=== PATIENT | female | born 1955 | race Caucasian/White ===

== ENCOUNTER 2020-07-09 07:34 | Outpatient (CLI) | payer OTHER, SELFPAY ==
--- NOTE | ~2020-07-09 | CT_ITS ---
EXAMINATION: CT lung screening EXAM DATE: 07/09/2020 08:56 INDICATION: Personal history of nicotine dependence. TECHNIQUE: Spiral low dose CT of the chest without contrast. Axial, coronal and sagittal images were reviewed. The dose-length product (DLP) for this examination was 108.13 mGy-cm. The exposure was t ailored according to patient size (auto mA exposure control), and iterative reconstruction (ASIR) was used as additional dose reduction technique. There is no prior study for comparison. FINDINGS: There is 3 mm noncalcified nodule right lower lobe on image 82. There is a 1.1 cm right po sterior lateral tracheal diverticulum at the thoracic inlet. Tracheobronchial tree is patent. There is no mediastinal, hilar or axillary lymphadenopathy. There are no pleural or pericardial effusion s. There is no pneumothorax. Heart normal in size. There is mild coronary arterial calcificatio n, arterial sclerosis. There is small sliding gastroesophageal hiatal hernia. Probable punctate left nephrolithiasis. There is moderate thoracic spondylosis without osteoblastic or osteolytic lesions identified. There is old left rib fracture posteriorly with nonunion. IMPRESSION: Lung-RADS category 2, benign appearance or behavior (<1% chance of malignancy); recommend continued LDCT screening in 1 year. Reviewed, dictated and finalized at location B. SITE MANAGER
--- NOTE | ~2020-07-09 | DEXA_ITS ---
Bone Density Report Name: Cris Loyola Age: 65 Sex: Female Ethnicity: White Date of : 1955 Indication: postmenopausal; height loss; hysterectomy; Referring Provider: Nimisha, Kelvin Study: Bone densitometry was performed. Exam Date: July 09, 2020 Accession number: [id number] Bone Density: Region BMD T-score Z-score Classification AP Spine (L1-L4) 1.086 0.4 2.2 Normal Femoral Neck (Left) 0.754 -0.9 0.7 Normal Total Hip (Left) 1.034 0.8 2.1 Normal Total Hip Bilateral Avg 1.014 0.6 1.9 Normal Femoral Neck (Right) 0.775 -0.7 0.9 Normal Total Hip (Right) 0.993 0.4 1.7 Normal World Health Organization criteria for BMD impression classify patients as: Normal (T-score at or above -1.0), Osteopenia (T-score between -1.0 and -2.5), or Osteoporosis (T-score at or below -2.5). 10-year Fracture Risk: FRAX not reported because: All T-scores for Spine Total, Hip Total, Femoral Neck at or above -1.0 Clinical Information Provided by Patient: Smokes Has the following medical conditions: Hysterectomy Patient maximum height was 65.5 Menopause Age: 44 No regular weight bearing exercise Drinks caffeinated beverages Onset of menses at age 13 Number of children 2 Impression: The patient has normal bone mass. The patient has risk factors, including: smoking. Discussion: BONE DENSITY IS ABOVE THE MINIMUM DESIRABLE LEVEL AT ALL SKELETAL SITES TESTED. This patient?s bone mineral density is above the minimum desirable level (T-score -1.0 or better) at all sites measured. The patient should follow a healthful lifestyle (good nutrition with adequate calcium and vitamin D, and appropriate weight-bearing exercise). Follow-Up: Consider repeating this study in 5 years or sooner if there is some new clinical indication. Reported by: [facility] on 07/09/2020 8:13:00 AM. Reviewed, dictated and finalized at location AYung ANN
--- NOTE | ~2020-07-09 | MM_ITS ---
EXAMINATION: MM screening [place]ton BI w keli HISTORY: Screening mammogram TECHNIQUE: Craniocaudal and mediolateral oblique 3-D tomosynthesis images were obtained and synthetic 2-D images were generated. CAD analysis was submitted and interpreted. COMPARISON: No prior mammogram is available for comparison at this institution. BREAST PARENCHYMAL COMPOSITION: There are scattered areas of fibroglandular density. FINDINGS: Scattered benign-appearing calcifications are present. There is no evidence of suspicious m ass, calcification, or architectural distortion to suggest malignancy in either breast. There has bee n no suspicious interval change. IMPRESSION: 1. No mammographic evidence of malignancy. 2. Recommend routine screening mammography in one year. BI-RADS Category 2: Benign finding(s). Reviewed, dictated and finalized at location A. SCREEN FITTER
== END 2020-07-09 07:35 | disposition home or self-care (01) ==
PROVIDERS: PCP Student in an Organized Health Care Education/Training Program; Visit Provider Student in an Organized Health Care Education/Training Program
DX: Z12.2 Encounter for screening for malignant neoplasm of respiratory organs (principal); Z12.31 Encounter for screening mammogram for malignant neoplasm of breast; F17.210 Nicotine dependence, cigarettes, uncomplicated; Z78.0 Asymptomatic menopausal state
CPT/HCPCS: 71271; 77063; 77067; 77080

== ENCOUNTER 2020-08-07 16:14 | Observation (INO) | payer OTHER, SELFPAY ==
[2020-08-07] VITALS (8 sets, daily range): BP systolic 100–118; BP diastolic 62–84; PULSE 88–102; RESP 16–22; TEMP 36.4–36.7; O2SAT 89–97; BMI 32.6
--- NOTE | 2020-08-07 16:52 | ED.WOUNDLAC ---
HPI - Wound/Laceration General Chief Complaint: Wound/Laceration Stated Complaint: fall - ETOH Time Seen by Provider: 08/07/20 16:24 Source: patient Mode of arrival: ambulatory Limitations: no limitations History of Present Illness HPI narrative: Patient is a 65-year-old female complaining of left arm laceration after she slipped and fell, hit a cabinet with her left arm, happened prior to arrival. Patient denies any head, neck, back, chest, abdomen, pelvic or any other extremity pain/injury. Onset (ago): hour(s) Related Data Home Medications Medication Instructions Recorded Confirmed atorvastatin 40 mg PO DAILY 08/07/20 08/07/20 Allergies Allergy/AdvReac Type Severity Reaction Status Date / Time No Known Allergies Allergy Verified 08/07/20 17:05 Review of Systems Review of Systems: All systems reviewed & are unremarkable except as noted in HPI and below Constitutional: Constitutional: Denies body ache(s), Denies chills, Denies excessive sweating, Denies fatigue, Denies fever(s), Denies headache(s), Denies lethargy, Denies malaise, Denies weakness and Denies weight loss Eyes: Eyes: Denies blurry vision, Denies change in vision and Denies loss of vision ENT: Denies dizziness, Denies ear discharge, Denies headache(s), Denies lip swelling, Denies epistaxis, Denies nasal congestion, Denies neck pain, Denies throat swelling and Denies tongue swelling Cardiovascular: Cardiovascular: Denies chest pain, Denies chest pain at rest, Denies chest pain with activity, Denies diaphoresis, Denies rapid heart rate, Denies edema, Denies irregular heart rhythm, Denies lightheadedness, Denies palpitations, Denies dyspnea and Denies dyspnea on exertion Respiratory: Respiratory: Denies chest congestion, Denies cough, Denies hemoptysis, Denies dyspnea and Denies dyspnea on exertion Gastrointestinal: Gastrointestinal: Denies abdominal pain, Denies melena, Denies hematochezia, Denies diarrhea, Denies nausea, Denies vomiting and Denies hematemesis Musculoskeletal: Musculoskeletal: Denies abnormal gait, Denies joint swelling, Denies limited range of motion, Denies neck pain and Denies numbness Neurologic: Denies Abnormal speech present, Denies abnormal gait, Denies confusion, Denies dizziness, Denies headache(s), Denies focal weakness, Denies loss of vision, Denies numbness, Denies Other visual disturbances, Denies Sensory deficit (Neuro) and Denies weakness Psychiatric: Psychiatric: Denies confusion, Denies depression, Denies auditory hallucinations, Denies homicidal ideation and Denies suicidal ideation Endocrine: Endocrine: Denies cold intolerance, Denies excessive sweating, Denies fatigue, Denies heat intolerance and Denies palpitations Hematologic/Lymphatic: Hematologic/Lymphatic: Denies easy bleeding and Denies easy bruising Allergic/Immunologic: Allergic/Immunologic: Denies lip swelling, Denies throat swelling and Denies tongue swelling PMFSH Past Medical History Medical History (Updated 08/07/20 @ 19:21 by Stuart Goff MD) Hyperlipidemia Social History Social History Smoking packs per day: 0.75 Smoking cigarettes per day: 15.0 Years smoked: 40 Smoking pack-years: 30.00 Smoking status: Current every day smoker Alcohol use details: 2-3 beers/day on average Exam Const: General: cooperative, healthy appearing, comfortable, no acute distress, well developed, alert and awake; No confusion Orientation/consciousness: oriented to person, oriented to place, oriented to time, patient oriented x3 and No confusion Limitations: no limitations HENMT: Head: normal to inspection, normocephalic and atraumatic Ears: hearing grossly normal bilaterally, TM normal on the right and TM normal on the left General nose exam: Normal external nose present, Normal nares present and No nasal discharge present Face and sinus: normal facial exam Mouth: Yes Normal oral and palatal
[2020-08-07] MEDS: LACTATED RINGERS 1,000 ML 250 ML IV CONT (17:03)
[2020-08-07 17:04] LABS: Basophils Percent Auto 0.3 % (0.2-1.2); Eosinophils Absolute Auto 0.2 K/mm3 (0-0.3); Eosinophils Percent Auto 2.7 % (0-4.4); Hemoglobin 13.6 g/dL (12.0-15.0); Immature Granulocyte Absolute 0.02 K/mm3 (0.00-0.031); Immature Granulocyte Percent A 0.3 % (0-0.5); Lymphocytes Absolute Auto 1.81 K/mm3 (0.9-3.2); Lymphocytes Percent Auto 25.9 % (18.3-44.2); Mean Corpuscular Hemoglobin 30.6 pg (26-34); Mean Corpuscular Volume 89.9 fl (80-100); Mean Platelet Volume 10.2 fl (7.4-10.4); Monocytes Absolute Auto 0.6 K/mm3 (0.1-0.6); Monocytes Percent Auto 8.4 % (2.6-8.5); Neutrophils Absolute Auto 4.4 K/mm3 (1.3-6.7); Neutrophils Percent Auto 62.4 % (45.5-73.1); Platelet Count Result 152 k/mm3 (150-375); Red Blood Count 4.45 M/mm3 (4.2-5.4); Red Cell Distribution Width 12.6 % (11.5-14.5)
[2020-08-07 17:09] LABS: Anion Gap 9 mmol/L (8-16); Blood Urea Nitrogen 10 mg/dL (7-17); Calcium 8.6 mg/dL (8.4-10.2); Carbon Dioxide 23 mmol/L (22-30); Chloride 99 mmol/L (98-107); Estimated CRCL calculation 74 ml/min; Estimated Glomerular Filt Rate > 60; Glucose 97 mg/dL (65-105); Potassium 3.8 mmol/L (3.4-5.0); Sodium 131 mmol/L (137-145)
[2020-08-07] MEDS: HYDROmorphone HCL INJ (*CRX) 1 MG/ML SYR 0.5 MG IV PUSH (17:16)
[2020-08-07] MEDS: ONDANSETRON INJ 4 MG/2 ML VIAL IV PUSH (17:17)
--- NOTE | 2020-08-07 17:55 | WPDANESEPPF ---
Anes - Initial Pre Proc Eval Procedure: Operation Date: 08/07/20 18:00 Proposed Procedures p I&D Debride Upper Extremity - Beckie Sheikh MD Date/Time: 08/07/20 17:55 Pre Op Diagnosis: fall - ETOH Patient Data Age: 65 Gender: F Height: 1.65 m Weight: 86 kg Last Vital Signs Temp 36.7 C 08/07/20 16:23 Pulse 102 H 08/07/20 16:23 Resp 16 08/07/20 16:23 BP 118/76 08/07/20 16:23 Pulse Ox 96 08/07/20 16:23 Allergies Allergy/AdvReac Type Severity Reaction Status Date / Time No Known Allergies Allergy Verified 08/07/20 17:05 Home Medications Medication Instructions Recorded Confirmed Type atorvastatin 40 mg PO DAILY 08/07/20 08/07/20 History Laboratory Tests 08/07/20 08/07/20 16:49 16:52 WBC 7.0 K/mm3 K/mm3 (4.5-10.0) RBC 4.45 M/mm3 M/mm3 (4.2-5.4) Hgb 13.6 g/dL g/dL (12.0-15.0) Hct 40.0 % % (37.0-47.0) MCV 89.9 fl fl (80-100) MCH 30.6 pg pg (26-34) MCHC 34.0 g/dl g/dl (32-36) RDW 12.6 % % (11.5-14.5) Plt Count 152 k/mm3 k/mm3 (150-375) MPV 10.2 fl fl (7.4-10.4) Immature Gran % (Auto) 0.3 % % (0-0.5) Neut % (Auto) 62.4 % % (45.5-73.1) Lymph % (Auto) 25.9 % % (18.3-44.2) [place] % (Auto) 8.4 % % (2.6-8.5) Eos % (Auto) 2.7 % % (0-4.4) Baso % (Auto) 0.3 % % (0.2-1.2) Lymph # (Auto) 1.81 K/mm3 K/mm3 (0.9-3.2) [place] # (Auto) 0.6 K/mm3 K/mm3 (0.1-0.6) Eos # (Auto) 0.2 K/mm3 K/mm3 (0-0.3) Baso # (Auto) 0.0 K/mm3 K/mm3 (0.0-0.1) Abs Immat Gran (auto) 0.02 K/mm3 K/mm3 (0.00-0.031) Absolute Neuts (auto) 4.4 K/mm3 K/mm3 (1.3-6.7) Absolute Nucleated RBC 0.0 K/mm3 K/mm3 (0.0-0.012) Nucleated RBC % 0.0 % % (0.0-0.2) Sodium 131 mmol/L L mmol/L (137-145) Potassium 3.8 mmol/L mmol/L (3.4-5.0) Chloride 99 mmol/L mmol/L (98-107) Carbon Dioxide 23 mmol/L mmol/L (22-30) Anion Gap 9 mmol/L mmol/L (8-16) BUN 10 mg/dL mg/dL (7-17) Creatinine 0.70 mg/dL mg/dL (0.7-1.0) Estim Creat Clear Calc 74 ml/min ml/min Estimated GFR > 60 (59 - ) Glucose 97 mg/dL mg/dL (65-105) Calcium 8.6 mg/dL mg/dL (8.4-10.2) Patient hx anesthesia problems: none Family hx anesthesia problems: none [facility] Past Medical History Medical History (Updated 08/07/20 @ 17:55 by Maurice Bansal DO) Hyperlipidemia Social History Social History (Updated 08/07/20 @ 17:56 by Maurice Bansal DO) Smoking packs per day: 0.75 Smoking cigarettes per day: 15.0 Years smoked: 40 Smoking pack-years: 30.00 Smoking status: Current every day smoker Alcohol use details: 2-3 beers/day on average Anes - Eval Final PreProcedure Day of Procedure 08/07/20 17:55 Patient weight: obese Heart: regular rate and rhythm Lungs: clear to auscultation and normal air movement Airway: Mallampati scale class II Neurological: alert and oriented Last oral intake: 4 hours (Pt believes she didn't eat today but she had 3 beers) ASA classification: III Emergent: yes Anesthetic plan: proceed Anesthesia type and monitoring: general ETT and standard monitoring Informed Consent: The patient's anesthetic plan and its attendant risks and benefits were discussed with the patient/family/POA. Questions were solicited and answers provided to the satisfaction of the patient/family/POA.
--- NOTE | 2020-08-07 18:01 | PM.IMHP ---
H&P: HPI History of Present Illness Date/Time: 08/07/20 18:01 Chief Complaint: LUE laceration Narrative: Cris Loyola is a 65 year old female presenting to the ED s/p fall c/o large laceration to LUE. Pt reports she fell and lacerated her LUE on the edge of her cabinet. Pt admits to ETOH prior to fall. Pt denies any other injuries or LOC. Pt reports tetnus shot last yr. Review of Systems Constitutional: Constitutional: Denies chills, Denies fatigue, Denies fever(s), Denies headache(s), Denies lethargy, Denies malaise, Denies poor appetite, Denies weakness, Denies weight gain and Denies weight loss Eyes: Eyes: Reports no additional eye complaints ENT: Reports system reviewed and no additional complaints, except as documented Cardiovascular: Cardiovascular: Reports no additional cardiovascular complaints Respiratory: Respiratory: Reports no additional respiratory complaints Gastrointestinal: Gastrointestinal: Reports no additional gastrointestinal complaints Genitourinary: Genitourinary: Reports no additional female genitourinary complaints Musculoskeletal: Musculoskeletal: Reports as per HPI Integumentary/Breasts: Skin/Breast: Reports system reviewed and no additional complaints, except as docu Neurologic: Reports system reviewed and no additional complaints, except as documented Psychiatric: Psychiatric: Reports no additional psychiatric complaints Endocrine: Endocrine: Reports no additional endocrine complaints Hematologic/Lymphatic: Hematologic/Lymphatic: Reports no additional hematologic/lymphatic complaints Allergic/Immunologic: Allergic/Immunologic: Reports no additional allergic/immunologic complaints PMFSH Past Medical History Medical History Hyperlipidemia Social History Social History Smoking packs per day: 0.75 Smoking cigarettes per day: 15.0 Years smoked: 40 Smoking pack-years: 30.00 Smoking status: Current every day smoker Alcohol use details: 2-3 beers/day on average Meds Home Medications and Allergies Home Medications Medication Instructions Recorded Confirmed Type atorvastatin 40 mg PO DAILY 08/07/20 08/07/20 History Allergies Allergy/AdvReac Type Severity Reaction Status Date / Time No Known Allergies Allergy Verified 08/07/20 17:05 Vital Signs Vital Signs - 24 hr 08/07/20 16:23 Temperature 36.7 C Pulse Rate 102 H Respiratory Rate 16 Blood Pressure 118/76 Pulse Oximetry 96 Exam Const: General: cooperative, comfortable, no acute distress, alert, awake and Physically active Nutritional Appearance: obese Orientation/consciousness: patient oriented x3 Limitations: no limitations HENMT: Head: normal to inspection, normocephalic and atraumatic Ears: hearing grossly normal bilaterally General nose exam: Normal external nose present Mouth: Yes Normal oral and palatal mucosa present and Yes moist mucous membranes Eyes: General: appearance normal, both eyes and all related structures Pupils: Equal, round and reactive pupils present EOM: EOMs intact bilaterally Neck: Neck: normal visual inspection, full ROM and no lymphadenopathy Chest: Chest palpation & inspection: normal inspection of the chest Resp: Effort & Inspection: normal respiratory effort Auscultation: clear to auscultation bilaterally Cardio: Jugular venous distension: no JVD Rate: regular rate Rhythm: regular rhythm GI: Inspection: normal to inspection and non-distended GI Palp: Yes Soft to palpation Skin: Other: large laceration of LUE measuring approx 22 cm, 5 cm defect noted, no neurosensory def Neuro: General: patient oriented x3 and CN's II-XI intact bilaterally H&P: Results Labs Labs: Short CBC 08/07/20 Range/Units 16:52 WBC 7.0 (4.5-10.0) K/mm3 Hgb 13.6 (12.0-15.0) g/dL Hct 40.0 (37.0-47.0) % Plt Count 152 (150-375) k/mm3 BMP
[2020-08-07] MEDS: ceFAZolin 2 GM/D5W 50 ML 2 GM/50 ML BAG IVPB (18:05)
--- NOTE | 2020-08-07 18:09 | WPDHPUPDATE1 ---
History and Physical Update Update Date/Time: 08/07/20 18:09 History and Physical has been reviewed, including an updated exam of the patient. There are NO changes in the patient's condition. Risks, benefits, and alternatives have been discussed and questions answered. Patient agrees to proceed with procedure.
[2020-08-07] MEDS: BUPIVACAINE/EPINEPHRINE 0.5% 30 ML VIAL INFILTRATE (18:28)
--- NOTE | 2020-08-07 18:41 | PM.PROC ---
Procedure Note - Detailed Date of procedure: 08/07/20 Pre-op diagnosis: fall - ETOH LUE laceration Post-op diagnosis: same Procedure performed: washout, complex closure LUE wound measuring 13 x 19 in, second irregular wound measuring 6 in Description of procedure: The patient was taken the operating room placed in the supine position. After adequate induction of general anesthesia the patient was prepped and draped in the normal sterile fashion. A time-out was then done to verify the patient's identity as well as the procedure being performed. Began by doing extensive washout of this wound. This was done with normal saline. I then measured the extent of the wound. Measurements were noted to be 13 x 19 in, with a 2nd wound measuring approximately 6 in. The depth of the wound was noted to be quite superficial going through the dermis into the subcutaneous tissue were no fascial involvement or underlying muscle was noted. I then closed the subcutaneous tissue with a few interrupted 3 0 Vicryl sutures. This was done to secure the skin flap back down to the underlying subcutaneous tissue. Once this was done, I used skin frances to reapproximate the skin edges. The secondary wound was closed with skin frances after washout. I then locally anesthetized the entirety of the laceration. The patient tolerated the procedure well and was extubated in the operating room postoperatively. She will be sent to the recovery room in stable condition. Anesthesia: GETA and local Surgeon: Beckie Sheikh MD Estimated blood loss (mL): 5 Drains: No Packing: No Pathology: none sent Complications: No immediate complications Condition: stable Disposition: PACU Findings: Large irregularly-shaped left upper extremity laceration
[2020-08-07] MEDS: LACTATED RINGERS 1,000 ML 30 ML IV CONT (18:42)
--- NOTE | 2020-08-07 19:11 | SUR.PHASEI ---
SAO2 DROPS TO 88% ON ROOM AIR. PT RESTING QUIETLY. RESP EVEN UNLABORED. O2 2L NC APPLIED.
--- NOTE | 2020-08-07 19:22 | SUR.PHASEI ---
PT AWAKE AND ALERT. TALKATIVE. DENIES PAIN OR NAUSEA. REPORT FAXED TO FLOOR AT [id number]
--- NOTE | 2020-08-07 19:45 | ADMGEN ---
This patient, Cris Loyola, was admitted to Medical Room 344-01. Patient/family oriented to hospital policies and general routines including ID bracelet, bed and alarms, visiting hours, pain management, procedures, bathroom and other care routines, personal items, smoking policy, room service/diet, and visiting hours. Information on how to activate the Rapid Response Team has been discussed. Patient/Family are encouraged to report perceived risks to care and to ask questions if they do not understand what they are told or what they should do.
[2020-08-08] MEDS: ceFAZolin 2 GM/D5W 50 ML 2 GM/50 ML BAG IVPB ×2 (02:20→09:43)
[2020-08-08 04:15] VITALS: BP 142/79; PULSE 94; RESP 18; TEMP 36.6; O2SAT 92
[2020-08-08] MEDS: HYDROcodone/acetaminophen (*CRX) 5-325 MG TABLET 1 TAB PO ×3 (05:45→15:35)
[2020-08-08 08:00] VITALS: BP 122/72; PULSE 88; RESP 20; TEMP 36.6; O2SAT 93
--- NOTE | 2020-08-08 09:17 | PM.DS ---
DS: Admitting Diagnosis Admitting Diagnosis Admitting Diagnosis: Laceration of left upper extremity Hyperlipidemia Alcohol Abuse DS: Discharge Diagnosis Discharge Diagnosis (1) Laceration of left upper extremity: Qualifiers: Encounter type: initial encounter Qualified Code(s): S41.112A - Laceration without foreign body of left upper arm, initial encounter Code(s): S41.112A - Laceration without foreign body of left upper arm, initial encounter Status: Acute (2) Hyperlipidemia: Code(s): E78.5 - Hyperlipidemia, unspecified Status: Acute (3) Alcohol abuse: Code(s): F10.10 - Alcohol abuse, uncomplicated Status: Acute Assessment and Plan: Discussed the importance of cessation. Encouraged the patient to quit drinking. DS: Summary Hospital Course Reason for hospitalization: Cris Loyola is a 65 year old female who presented to the ED s/p fall c/o large laceration to LUE. Pt reports she fell and lacerated her LUE on the edge of her cabinet. Pt admits to alcohol use prior to fall. Pt denies any other injuries or loss of consciousness. Patient had tetanus shot within the last year. Our service was consulted from the ER and she was taken to the OR yesterday evening and admitted for observation overnight. Hospital Course: She underwent a washout and complex closure LUE wound and second irregular wound by Dr. Sheikh on 08/07/20. There are frances in place and a dressing with xeroform gauze was applied covered with dry gauze and kerlex wrap. This morning, the dressing was removed and reassessed. Overall, it looked good with some serosanguineous drainage. There was a small area that was cool and dusky in appearance, but we will need to continue to monitor closely as an outpatient. Will continue with local wound care and I will ask care coordination to set up home health. The patient will be advanced on her diet and if feeling well later today, she can be discharged. She has help at home that will be able to change her dressing on the days home health does not come. Will send her home on a week of cephalexin as well and follow-up in the wound clinic next week. All questions were answered and discharge instructions were discussed today. Status at Discharge Functional status at discharge: independent ambulation Overall status at discharge: patient is progressing back to baseline Time Spent with Patient Time attestation: Total time spent providing and/or coordinating discharge services: Time spent: Greater than 30 minutes Exam Const: General: cooperative, comfortable, no acute distress and awake Nutritional Appearance: average body habitus Orientation/consciousness: patient oriented x3 Resp: Effort & Inspection: normal respiratory effort Auscultation: clear to auscultation bilaterally Cardio: Rate: regular rate Rhythm: regular rhythm GI: Inspection: normal to inspection and non-distended GI Palp: Yes Soft to palpation and No Tenderness to palpation present (GI) Skin: General skin exam: normal color Neuro: General: moves all extremities and no focal motor deficits Extrem: Right upper extremity: normal to inspection Right lower extremity: normal to inspection Left lower extremity: normal to inspection Other: Left upper extremity laceration with frances intact, the large laceration is 28 cm in length wrapping around the posterior aspect of the upper arm and there is a smaller laceration inferior and medial to the posterior aspect of the arm measuring now 3.3 cm with frances intact. Minimal sanguineous drainage. Slightly cool and dusky in a small area near the center of the large laceration. Bruising along the entire wound. Psych: Mental Status: mental status grossly normal Affect: normal affect Insight: Good insight present (Psych) Judgement: Good judgement present (Psych) DS: Data Data Completed and Pending Labs on day of discharge: Labs from last 24 hours 08/07/20 08/07/20 16:52 16
--- NOTE | 2020-08-08 09:39 | WPDANESPN ---
Anes - Prog Note Post-Op Date/Time: 08/08/20 09:39 Cardiovascular status: normal Respiratory status: normal Airway patency: baseline Mental status: baseline Post-Op hydration status: normal Vital Signs: Last Vital Signs Temp 36.6 C 08/08/20 04:15 Pulse 94 08/08/20 04:15 Resp 18 08/08/20 04:15 BP 142/79 H 08/08/20 04:15 Pulse Ox 92 08/08/20 04:15 Pain Score (VAS): 1 I/O: Intake & Output 08/07/20 08/08/20 08/08/20 23:59 07:59 15:59 Intake Total 350 350 Output Total 300 350 Balance 50 0 Laboratory Tests 08/07/20 16:52 08/07/20 16:49 08/07/20 08/07/20 16:49 16:52 WBC 7.0 RBC 4.45 Hgb 13.6 Hct 40.0 MCV 89.9 MCH 30.6 MCHC 34.0 RDW 12.6 Plt Count 152 MPV 10.2 Immature Gran % (Auto) 0.3 Neut % (Auto) 62.4 Lymph % (Auto) 25.9 [place] % (Auto) 8.4 Eos % (Auto) 2.7 Baso % (Auto) 0.3 Lymph # (Auto) 1.81 [place] # (Auto) 0.6 Eos # (Auto) 0.2 Baso # (Auto) 0.0 Abs Immat Gran (auto) 0.02 Absolute Neuts (auto) 4.4 Absolute Nucleated RBC 0.0 Nucleated RBC % 0.0 Sodium 131 L Potassium 3.8 Chloride 99 Carbon Dioxide 23 Anion Gap 9 BUN 10 Creatinine 0.70 Estim Creat Clear Calc 74 Estimated GFR > 60 Glucose 97 Calcium 8.6 Post-procedural complaints: none Patient Feedback: Patient satisfied with anesthetic care.
[2020-08-08] MEDS: ATORVASTATIN 40 MG TABLET PO (09:43)
[2020-08-08 14:00] VITALS: BP 106/62; PULSE 119; RESP 20; TEMP 37.2; O2SAT 92
== END 2020-08-08 16:15 | disposition home health service (06) ==
LOC: ANHED 16:53 → ANH3MED 18:52
PROVIDERS: Admitting Provider Surgery; Emergency Provider Emergency Medicine; PCP Student in an Organized Health Care Education/Training Program; Visit Provider Surgery
PROC: (CPT 13121; principal; 2020-08-07 18:00)
DX: S41.112A Laceration without foreign body of left upper arm, initial encounter (principal); W19.XXXA Unspecified fall, initial encounter; E78.5 Hyperlipidemia, unspecified; F10.10 Alcohol abuse, uncomplicated
CPT/HCPCS: 13121; 13122 ×3; 36415; 80048; 85025; 96361; 96365; 96366; 96375; 99285; A9270; G0378; J0330; J0690; J1100; J1170; J2405; J2704; J3010; J7120

== ENCOUNTER 2020-08-19 08:30 | Outpatient (CLI) | payer MEDICARE, SELFPAY | END 2020-08-19 08:31 | disposition home or self-care (01) | LOC: ANHCOVIDVC 08:30 | PROVIDERS: PCP Surgery | DX: Z23 Encounter for immunization (principal) | CPT/HCPCS: 0001A; 91300 ==

== ENCOUNTER 2020-09-09 08:28 | Outpatient (CLI) | payer OTHER, MEDICARE, SELFPAY | END 2020-09-09 08:29 | LOC: ANHCOVIDVC 08:30 | PROVIDERS: PCP Surgery | DX: Z23 Encounter for immunization (principal) | CPT/HCPCS: 0002A; 91300 ==

== ENCOUNTER 2020-10-04 10:05 | Emergency (ER) | payer OTHER, SELFPAY ==
--- NOTE | 2020-10-04 10:08 | ED.GENADULT ---
HPI - General Adult General Chief complaint: Skin/Abscess/Foreign Body Stated complaint: Growth under arm Time Seen by Provider: 10/04/20 10:08 Source: patient Mode of arrival: ambulatory Limitations: no limitations History of Present Illness HPI narrative: 65-year-old female patient presents to the [facility] with complaints of what she calls a growth under the left arm that has been there for about 2 days. Patient states is very sore to the touch. Denies doing anything for the sore. Denies fevers, body aches or chills. Related Data Home Medications Medication Instructions Recorded Confirmed atorvastatin 40 mg PO HS 08/07/20 08/12/20 Allergies Allergy/AdvReac Type Severity Reaction Status Date / Time No Known Allergies Allergy Verified 08/07/20 20:09 Review of Systems Review of Systems: Narrative: CONSTITUTIONAL: Denies fever, chills, or sweats. EYES: Denies visual changes, redness, or discharge. ENT: Denies rhinorrhea, congestion, sore throat, or otalgia. CARDIOVASCULAR: Denies chest pain, palpitations, or edema. RESPIRATORY: Denies cough or dyspnea. GASTROINTESTINAL: Denies abdominal pain, nausea, vomiting, or diarrhea. GENITOURINARY: Denies dysuria or hematuria. SKIN: Denies rash or itching. Positive wound to left underarm x2 days MUSCULOSKELETAL: Denies back pain, joint pain, or myalgia. NEUROLOGIC: Denies headache, numbness, or weakness. PSYCHIATRIC: Denies anxiety or depression. PMFSH Past Medical History Medical History Hyperlipidemia Social History Social History Smoking packs per day: 0.5 Smoking cigarettes per day: 10.0 Years smoked: 40 Smoking pack-years: 20.00 Smoking status: Current every day smoker Tobacco type: cigarettes Alcohol intake: current Drinks per week: 10 Substance use: never Substance use type: does not use Gender identity (if verbalized by the patient): Female Spiritual care concerns: No Comments At the time of my signature I agree with nursing past medical history, surgical, social, and family history. There is no relevant family history pertinent to the presenting complaint. Exam Narrative: Exam Narrative: GENERAL: Well-appearing, well-nourished, and in no acute distress. HEAD: Normocephalic, atraumatic. EYES: PERRLA and EOMI. ENT: Nares clear, no rhinorrhea or epistaxis. Mucous membranes moist. NECK: Supple. No lymphadenopathy CHEST: Clear to auscultation. No respiratory distress. HEART: Regular rate and rhythm. No murmur heard. Normal peripheral pulses. ABDOMEN: Soft, nontender, nondistended, normal active bowel sounds. EXTREMITIES: Normal range of motion. No edema. SKIN: Warm, dry, no rash. Patient has approximately 2 and half centimeter raised abscess noted on the left side along the axillary line. There is some erythema, warmth and it appears to have a scab to the middle. There is slight beige draining noted. NEURO: No focal deficits. Alert and oriented x3. Course Vital Signs Vital signs: Vital Signs Temperature 37.0 C 10/04/20 10:14 Pulse Rate 104 H 10/04/20 10:14 Respiratory Rate 18 10/04/20 10:14 Blood Pressure 154/95 H 10/04/20 10:14 Pulse Oximetry 98 10/04/20 10:14 Temperature 37.0 C 10/04/20 10:14 Pulse Rate 104 H 10/04/20 10:14 Respiratory Rate 18 10/04/20 10:14 Blood Pressure 154/95 H 10/04/20 10:14 Pulse Oximetry 98 10/04/20 10:14 Vital signs reviewed The patient has been informed that they may have pre-hypertension or Hypertension based on a BP reading in the department. I recommend that the patient call the primary care provider listed on their discharge instructions or a physician of their choice this week to arrange follow up for further evaluation of possible pre-hypertension or Hypertension Procedures Abscess I/D chest: Date of Incision: 10/04/20 Time of I
[2020-10-04 10:14] VITALS: BP 154/95; PULSE 104; RESP 18; TEMP 37; O2SAT 98
--- NOTE | 2020-10-04 10:39 | PC.NURSE ---
service counselor did i an d with wound culture.
--- NOTE | 2020-10-04 11:08 | PC.NURSE ---
wound cx sent
== END 2020-10-04 10:54 | disposition home or self-care (01) ==
PROVIDERS: Emergency Provider Nurse Practitioner Family; PCP Student in an Organized Health Care Education/Training Program
DX: L02.213 Cutaneous abscess of chest wall (principal); F17.210 Nicotine dependence, cigarettes, uncomplicated; E78.5 Hyperlipidemia, unspecified
CPT/HCPCS: 10060; 87070; 87075; 87147; 87181; 87186; 87205; 99213; G0463

== ENCOUNTER 2020-10-13 08:08 | Outpatient (RCR) | payer OTHER, SELFPAY ==
[2020-08-12 13:05] VITALS: BMI 32.6
--- NOTE | 2020-08-12 13:37 | WPDWOUNDNOTE ---
Wound Care Note Date/Time: 08/12/20 13:37 Pt seen and examined in [facility]. Pt reports no issues and states pain is well controlled. Pt here for [facility] home health nurse concerned about wound. Pt denies any s/s infection, drainage. Assessment and Plan Assessment and plan (1) Laceration of left upper extremity: Qualifiers: Encounter type: initial encounter Qualified Code(s): S41.112A - Laceration without foreign body of left upper arm, initial encounter Code(s): S41.112A - Laceration without foreign body of left upper arm, initial encounter Status: Acute Assessment and Plan: doing well, cont local wound care, f/u next wk for staple removal Review of Systems Review of Systems: All systems reviewed & are unremarkable except as noted in HPI and below Exam Const: General: cooperative and comfortable Orientation/consciousness: patient oriented x3 Resp: Effort & Inspection: normal respiratory effort Auscultation: clear to auscultation bilaterally Cardio: Rate: regular rate Rhythm: regular rhythm GI: Inspection: normal to inspection GI Palp: Yes Soft to palpation and No Tenderness to palpation present (GI) Skin: Other: LUE wound - frances intact, mild bruising, but overall skin is viable, no s/s infection
== END 2020-10-28 07:26 | disposition home or self-care (01) ==
LOC: ANHWOC 08:08
PROVIDERS: PCP Student in an Organized Health Care Education/Training Program; Visit Provider Surgery
DX: S41.112D Laceration without foreign body of left upper arm, subsequent encounter (principal)
CPT/HCPCS: 97597; 97598; 99211; 99212; G0463

== ENCOUNTER 2022-01-26 08:36 | Outpatient (CLI) | payer OTHER, SELFPAY ==
--- NOTE | ~2022-01-26 | MM_ITS ---
EXAMINATION: MM screening payton BI w keli HISTORY: Screening TECHNIQUE: Craniocaudal and mediolateral oblique 3-D tomosynthesis images were obtained and synthetic 2-D images were generated. CAD analysis was submitted and interpreted. COMPARISON: 07/09/2020 BREAST PARENCHYMAL COMPOSITION: There are scattered areas of fibroglandular density. FINDINGS: The right breast is stable without evidence for malignancy. There are developing indetermin ate calcifications in the upper central aspect of the left breast. There is a developing asymmetry wi th possible architectural distortion laterally in the left breast on CC view. IMPRESSION: 1. Developing left breast asymmetry laterally in clustered indeterminate calcifications in the upper central left breast. 2. Additional mammographic views and possible breast ultrasound are recommended. BI-RADS Category 0: Incomplete: Needs additional imaging evaluation. Reviewed, dictated and finalized at location A. IMPRESSION: 1. Developing left breast asymmetry laterally in clustered indeterminate calcif ications in the upper central left breast. 2. Additional mammographic views and possible breast ultrasound are recommended . BI-RADS Category 0: Incomplete: Needs additional imaging evaluation.
== END 2022-01-26 08:37 | disposition home or self-care (01) ==
LOC: ANHIMG 08:38
PROVIDERS: PCP Student in an Organized Health Care Education/Training Program; Visit Provider Student in an Organized Health Care Education/Training Program
DX: Z12.31 Encounter for screening mammogram for malignant neoplasm of breast (principal); R92.8 Other abnormal and inconclusive findings on diagnostic imaging of breast
CPT/HCPCS: 77063; 77067

== ENCOUNTER 2022-02-22 12:36 | Outpatient (CLI) | payer OTHER, SELFPAY ==
--- NOTE | ~2022-02-22 | MM_ITS ---
EXAMINATION: MM diagnostic mammo unilat LT HISTORY: Left breast calcifications and possible architectural distortion of the left breast on scree dulce mammogram TECHNIQUE: Additional 3-D tomosynthesis images of the left breast were performed and synthetic 2-D im ages were generated. Magnification views are also obtained. CAD analysis was submitted and interprete d. High resolution limited left breast ultrasound was performed. COMPARISON: 01/26/2022, 07/09/2020 FINDINGS: MAMMOGRAPHIC FINDINGS: There is a return to baseline fibroglandular appearance with spot compression of the left breast in t he area questioned on screening mammogram. Magnification views demonstrate round calcifications in th e middle third of the central breast. ULTRASOUND: There is no evidence of focal abnormal solid or cystic mass in the vicinity of the mammographic findi ng in question. IMPRESSION: 1. No mammographic or sonographic evidence of malignancy. 2. Recommend routine screening mammography in one year. BI-RADS Category 2: Benign finding(s). Reviewed, dictated and finalized at location A.
== END 2022-02-22 12:37 | disposition home or self-care (01) ==
PROVIDERS: PCP Student in an Organized Health Care Education/Training Program; Visit Provider Student in an Organized Health Care Education/Training Program
DX: R92.8 Other abnormal and inconclusive findings on diagnostic imaging of breast (principal)
CPT/HCPCS: 76642; 77065

== ENCOUNTER 2022-09-17 14:32 | Outpatient (CLI) | payer OTHER, SELFPAY ==
--- NOTE | ~2022-09-17 | CT_ITS ---
EXAMINATION: CT lung screening DATE: 09/17/2022 14:50 INDICATION: Nicotine dependence. TECHNIQUE: Computed tomography (CT) of the chest was performed without intravenous contrast. The dose -length product was 135.79 mGy-cm. Automated exposure control and iterative reconstruction technique were employed. COMPARISON: CT dated 07/09/2020 FINDINGS: Heart size is normal. Mild mediastinal lymph node enlargement measuring 1 cm short axis, un changed, likely reactive. There is atherosclerosis of the aorta and coronary arteries. Stable appeara nce to right lateral tracheal diverticulum at the thoracic inlet. Mild emphysema. No endobronchial le sions. Stable 3 mm right lower lobe nodule, image 75. 2 mm right upper lobe nodule unchanged. No new pulmonary nodules or masses. Moderate lumbar spondylosis with accentuated thoracic kyphosis. No focal lytic or blastic lesions. IMPRESSION: 1. Lung-RADS category 2: Benign appearance or behavior. Continue annual screening with noncontrast lo w-dose chest CT in 12 months. Reviewed, dictated and finalized at location B. IMPRESSION: 1. Lung-RADS category 2: Benign appearance or behavior. Continue annual screeni ng with noncontrast low-dose chest CT in 12 months.
== END 2022-09-17 14:33 | disposition home or self-care (01) ==
PROVIDERS: PCP Student in an Organized Health Care Education/Training Program; Visit Provider Student in an Organized Health Care Education/Training Program
DX: Z12.2 Encounter for screening for malignant neoplasm of respiratory organs (principal); F17.210 Nicotine dependence, cigarettes, uncomplicated
CPT/HCPCS: 71271

== ENCOUNTER 2024-01-17 07:10 | Outpatient (CLI) | payer OTHER, SELFPAY ==
--- NOTE | ~2024-01-17 | MM_ITS ---
EXAMINATION: MM screening payton BI w keli HISTORY: Screening TECHNIQUE: Craniocaudal and mediolateral oblique 3-D tomosynthesis images were obtained and synthetic 2-D images were generated. CAD analysis was submitted and interpreted. COMPARISON: Comparison to multiple prior studies sequentially, with oldest reviewed study dated 08/2020. BREAST PARENCHYMAL COMPOSITION: Not dense: There are scattered areas of fibroglandular density. FINDINGS: There is no evidence of suspicious mass, calcification, or architectural distortion to sugg est malignancy in either breast. There has been no suspicious interval change. IMPRESSION: 1. No mammographic evidence of malignancy. 2. Recommend routine screening mammography in one year. BI-RADS Category 1: Negative Reviewed, dictated and finalized at location B.
== END 2024-01-17 07:11 | disposition home or self-care (01) ==
PROVIDERS: PCP Student in an Organized Health Care Education/Training Program; Visit Provider Student in an Organized Health Care Education/Training Program
DX: Z12.31 Encounter for screening mammogram for malignant neoplasm of breast (principal)
CPT/HCPCS: 77063; 77067

== ENCOUNTER 2024-03-06 16:32 | Outpatient (CLI) | payer OTHER, SELFPAY ==
--- NOTE | ~2024-03-06 | CT_ITS ---
CT Scan of the Chest without Contrast: Clinical Indication: Lung cancer screening, nicotine dependence Technique: Contiguous sections were acquired throughout the chest without intravenous contrast. Dose reduction technique was used on this scan by utilizing automated exposure control and iterative recon struction technique. The dose-length product (DLP) was 109.30 mGy-cm. COMPARISON: 09/17/2022 Findings: There is no evidence of any significant mediastinal, hilar or axillary lymphadenopathy. There are ath erosclerotic calcifications of the aorta and coronary arteries. There is no evidence of pleural or pericardial effusion. Stable 3 mm peripheral right lower lobe pulmonary nodule. Images through the upper abdomen reveal no abnormalities. Impression: Lung RADS 2: Benign appearance. 12 month follow-up screening CT advised. Reviewed, dictated and finalized at location . Impression: Lung RADS 2: Benign appearance. 12 month follow-up screening CT advised.
== END 2024-03-06 16:33 | disposition home or self-care (01) ==
LOC: ANHIMG 16:33
PROVIDERS: PCP Student in an Organized Health Care Education/Training Program; Visit Provider Student in an Organized Health Care Education/Training Program
DX: Z12.2 Encounter for screening for malignant neoplasm of respiratory organs (principal); Z87.891 Personal history of nicotine dependence
CPT/HCPCS: 71271

== ENCOUNTER 2024-04-17 11:43 | Emergency (ER) | payer OTHER, SELFPAY ==
--- NOTE | ~2024-04-17 | XR_ITS ---
EXAMINATION: XR elbow RT min 3V DATE: 04/17/2024 12:45 INDICATION: Right elbow pain. Injury. TECHNIQUE: 5 views of right elbow were obtained. COMPARISON: Right elbow radiographs 04/24/2008 FINDINGS: There is a fracture of the coronoid process of proximal ulna with 5 mm distraction. There i s a loose body in the elbow joint laterally. There is mild elbow joint osteoarthritis. There are enth esophytes at the medial and lateral humeral epicondyles. There is an elbow joint effusion. IMPRESSION: 1. Fracture of the coronoid process of proximal ulna. 2. Elbow joint effusion with loose body. 3. Mild elbow joint osteoarthritis. Reviewed, dictated and finalized at location A. [employer]
[2024-04-17 11:57] VITALS: BP 116/69; PULSE 78; RESP 17; TEMP 36.5; O2SAT 97
--- NOTE | 2024-04-17 12:16 | ED_ITS ---
HPI - Extremity Injury (Upper) General Chief Complaint: Extremity Injury, Upper <Anabelle Mckeon PA-C - Last Filed: 04/17/24 18:37> Stated Complaint: R elbow out of wack after fall <Anabelle Mckeon PA-C - Last Filed: 04/17/24 18:37> Time Seen by Provider: 04/17/24 12:16 <Anabelle Mckeon PA-C - Last Filed: 04/17/24 18:37> Focused HPI: This is a 69 year old female that presents to the ER after a fall today. Reports she was walking on the sidewalk and tripped. Reports sustaining an injury to the right elbow. Reports decreased ROM. She did not hit her head or lose consciousness. Denies numbness. GENERAL: Well-appearing, well-nourished, and in no acute distress. HEAD: Normocephalic, atraumatic. CHEST: Clear to auscultation. ?No respiratory distress. HEART: Regular rate and rhythm.? NEURO: ?Alert and oriented x3. Patient screened in triage and initial orders placed.? ?Additional care and disposition to be based upon?diagnostic testing and treatment. <Anabelle Mckeon PA-C - Last Filed: 04/17/24 18:37> History of Present Illness HPI narrative: I agree with the above HPI <Humble Sutton MD - Last Filed: 04/18/24 18:28> Related Data Home Medications: Home Medications Medication Instructions Recorded Confirmed atorvastatin 40 mg tablet 40 mg PO HS 08/07/20 04/18/24 <Anabelle Mckeon PA-C - Last Filed: 04/17/24 18:37> Allergies/Adverse Reactions: Allergies Allergy/AdvReac Type Severity Reaction Status Date / Time No Known Allergies Allergy Verified 04/18/24 12:33 <Anabelle Mckeon PA-C - Last Filed: 04/17/24 18:37> Review of Systems Review of Systems: CONSTITUTIONAL: Denies fever MUSCULOSKELETAL: Reports joint pain, and myalgia. NEUROLOGIC: Denies numbness <Anabelle Mckeon PA-C - Last Filed: 04/17/24 18:37> All systems reviewed & are unremarkable except as noted in HPI and below <Anabelle Mckeon PA-C - Last Filed: 04/17/24 18:37> [facility] Past Medical History Medical History: Medical History (Updated 04/18/24 @ 13:45 by Ronnie Paul MD) Fracture of proximal end of right ulna Fx coronoid proc ulna-closed Hyperlipidemia <Anabelle Mckeon PA-C - Last Filed: 04/17/24 18:37> Social History Social History: Social History Smoking packs per day: 0.5 Smoking cigarettes per day: 10.0 Years smoked: 40 Smoking pack-years: 20.00 Smoking status: Current every day smoker Tobacco type: cigarettes Alcohol intake: current Drinks per week: 10 Alcohol use details: 2-3 beers/day on average Substance use: never Substance use type: does not use Gender identity (if verbalized by the patient): Female Spiritual care concerns: No <Anabelle Mckeon PA-C - Last Filed: 04/17/24 18:37> Exam Narrative: GENERAL: Well-appearing, well-nourished, and in no acute distress. HEAD: Normocephalic, atraumatic. EYES: EOMI. CHEST: No respiratory distress. HEART: Regular rate EXTREMITIES: Decreased active ROM in the right elbow due to pain. Mild edema about the elbow. Normal radial pulse. Normal sensation SKIN: Warm, dry, no rash. NEURO: No focal deficits. Alert and oriented x3. PSYCH: Normal mood and affect <Anabelle Mckeon PA-C - Last Filed: 04/17/24 18:37> Course Vital Signs Vital signs: Vital Signs Temperature 97.7 F 04/17/24 11:57 Pulse Rate 78 04/17/24 11:57 Respiratory Rate 17 04/17/24 11:57 Blood Pressure 116/69 04/17/24 11:57 Pulse Oximetry 97 04/17/24 11:57 Oxygen Delivery Room Air 04/17/24 11:57 Temperature 98.1 F 04/17/24 13:56 Pulse Rate 67 04/17/24 13:56 Respiratory Rate 14 04/17/24 13:56 Blood Pressure 136/87 04/17/24 13:56 Pulse Oximetry 100 04/17/24 13:56 Oxygen Delivery Room Air 04/17/24 11:57 <Anabelle Mckeon PA-C - Last Filed: 04/17/24 18:37> Vital Signs Temperature 97.7 F 04/17/24 11:57 Pulse Rate 78 04/17/24 11:57 Respiratory Rate 17 04/17/24 11:57 Blood Pressure 116/69 04/17/24 11:57 Pulse Oximetry 97 04/17/24 11:57 Oxygen Delivery Room Air 04/17/24 11:57 Temperature 98.1 F 04/17/24 13:56 Pulse Rate 67 04/17/24 13:56 Respiratory Rate 14 04/17/24 13:56 Blood Pressure 136/87 04/17/24 13:56 Pulse Oximetry 100 04/17/24 13:56 Oxygen Delivery Room Air 04/17/24 11:57 <Humble Sutton MD - Last Filed: 04/18/24 18:28> MDM - Extremity Injury (Upper) MDM Narrative Medical decision making narrative: 69-year-old female presents emergency department for evaluation for right elbow pain after having a ground level fall. Patient denies any other pain or injury but is complaining of right elbow pain. X-ray does show a of a fracture. Patient was placed and a long-arm splint of the right arm provided a Pap sling for comfort. Patient was provided medication for pain control. Patient will be provided medication for pain control for home. Patient will have follow-up with Orthopedics. <Humble Sutton MD - Last Filed: 04/18/24 18:28> Differential Diagnosis Differential diagnosis: Likely dislocation of shoulder and fracture of humerus <Humble Sutton MD - Last Filed: 04/18/24 18:28> Imaging Data Radiologist's impression: ITS Impressions Elbow X-Ray 04/17/24 12:45 IMPRESSION: 1. Fracture of the coronoid process of proximal ulna. 2. Elbow joint effusion with loose body. 3. Mild elbow joint osteoarthritis. <Anabelle Mckeon PA-C - Last Filed: 04/17/24 18:37> Critical Care Time Critical Care Time Critical Care Time: No <Anabelle Mckeon PA-C - Last Filed: 04/17/24 18:37> Discharge Plan Discharge Clinical Impression: Elbow fracture, right <Anabelle Mckeon PA-C - Last Filed: 04/17/24 18:37> Patient Disposition: Home, Self-Care <HANK Christy Last Filed: 04/17/24 18:37> Condition: Stable <HANK Christy Last Filed: 04/17/24 18:37> Instructions: Antibiotic Form, Arm Fracture in Adults (ED), How to Use a Sling (ED), Splint Care (ED) <Anabelle Mckeon PA-C - Last Filed: 04/17/24 18:37> Additional Instructions: Tylenol for pain control. Bailey as needed for additional pain control. Do not take Bailey and Tylenol the same time as both contain acetaminophen. Have close follow-up with Orthopedics. If you have any worsening symptoms then please call or return to the emergency department. <Anabelle Mckeon PA-C - Last Filed: 04/17/24 18:37> Prescriptions: New cyclobenzaprine 10 mg tablet 10 mg PO BID PRN (Reason: muscle spasm) Qty: 14 0RF hydrocodone-acetaminophen 5-325 mg tablet 1 tablet PO Q12H PRN (Reason: pain) Qty: 14 0RF No Action cephalexin 500 mg capsule 500 mg PO Q12H 7 Days Qty: 14 0RF sulfamethoxazole-trimethoprim 800-160 mg tablet 1 tablet PO Q12H 7 Days Qty: 14 0RF atorvastatin 40 mg tablet 40 mg PO HS <Anabelle Mckeon PA-C - Last Filed: 04/17/24 18:37> Follow-up/Referrals: Ronnie Paul MD [Physician] - Severoluis angel,DO Kelvin [Primary Care Provider] - <HANK Christy Last Filed: 04/17/24 18:37>
[2024-04-17] MEDS: CYCLOBENZAPRINE HCL 10 MG TABLET PO (13:43)
[2024-04-17] MEDS: HYDROcodone/acetaminophen (*CRX) 5-325 MG TABLET 1 TAB PO (13:43)
[2024-04-17 13:56] VITALS: BP 136/87; PULSE 67; RESP 14; TEMP 36.7; O2SAT 100
== END 2024-04-17 14:08 | disposition home or self-care (01) ==
PROVIDERS: Emergency Provider Emergency Medicine; PCP Student in an Organized Health Care Education/Training Program
DX: S52.041A Displaced fracture of coronoid process of right ulna, initial encounter for closed fracture (principal); F17.210 Nicotine dependence, cigarettes, uncomplicated; E78.5 Hyperlipidemia, unspecified; W01.0XXA Fall on same level from slipping, tripping and stumbling without subsequent striking against object, initial encounter
CPT/HCPCS: 29105; 73080; 99284; A4565; A9270

== ENCOUNTER 2025-04-04 02:04 | Day surgery (SDC) | payer OTHER, SELFPAY ==
[2025-03-26 12:27] VITALS: BMI 29.2
--- OUTSIDE RECORDS SUMMARY | 2025-04-04 02:07 | XMS_ITS | Clinical Summary ---
Author Organization [facility] Address [address] [place] [address] Care Team Providers Care Furnace Packer Name Role Phone Kelvin Bansal DO Primary Care Provider + Allergies No known active allergies Medications calcium carb-cholecalciferol (CALTRATE+D) 600-10 MG-MCG Tab tablet 1 tablet daily. Active triamcinolone (KENALOG) 0.1 % creamIndications:Rash Apply topically 2 (two) times daily. Apply to affected area at first sign of rash 80 g 025 Active atorvastatin (LIPITOR) 40 MG tabletIndications:Pure hypercholesterolemia TAKE 1 TABLET BY MOUTH NIGHTLY AT BEDTIME 90 tablet 025 Active atorvastatin (LIPITOR) 40 MG tabletIndications:Pure hypercholesterolemia TAKE 1 TABLET BY MOUTH NIGHTLY AT BEDTIME 90 tablet 025 2024 Discontinued Active Problems Problem Noted Date Diagnosed Date Alcoholic fatty liver 01/03/2025 Gallbladder polyp 01/03/2025 Urinary incontinence, unspecified type Atherosclerosis of aorta 09/20/2022 Overview (09/20/2022): Noted on 09/17/22 CT Emphysema lung 09/20/2022 Overview (09/20/2022): Noted on CT from 09/17/22 Hepatitis C antibody test positive 04/02/2019 Vitamin D deficiency 04/02/2019 Pure hypercholesterolemia 03/06/2019 Cataract of right eye, unspecified cataract type 03/06/2019 Gastroesophageal reflux disease 03/06/2019 Alcohol dependence, uncomplicated Resolved Problems Problem Noted Date Diagnosed Date Resolved Date Elevated hemoglobin 10/03/2020 12/07/19 23 Heel spur 07/21/2016 03/06/2019 Encounters Date Type Department Care Team Description 03/07/2025 Scan [facility] Scanned, [facility] 02/26/2025 Scan [facility] Scanned, Doc [facility] 01/31/2025 Scan [facility] Scanned, Doc Med Group 01/04/2025 Telephone [facility] Family & Internal [address] [address] Kelvin Bansal, DO Information 01/03/2025 8:20 AM CDT Office Visit [facility] Internal [address] [address] Kelvin Bansal, DO Follow Up; Emphysema; Hyperlipidemia; Alcohol Dependency (In remission); Problem (Bowel) (Fecal urgency) 01/03/2025 Travel from Last 3 Months Immunizations Immunization Administration Dates Next Due Fluzone High Dose (IIV, trivalent, 0.5mL) 2023 Fluzone High Dose - >Age 65 (Prefilled Syringe) 05/22/2020 Influenza Adult (Generic) 04/09/2023 PFIZER COVID-19 (WHEAT CAP), MRNA, LNP-S, PF, 30 MCG/0.3 ML JAYME-SUCROSE, IM 12/08/2021 PFIZER COVID-19 (ORIGINAL FO RMULATION, PURPLE CAP) mRNA, LNP-S, PF, 30 MCG/0.3 ML DOSE 05/04/2021,09/09/2020,08/19/2020 Pneumococcal (Pneumovax 23) 05/22/2020 Pneumococcal (Prevnar 13) 03/06/2019 Shingrix 06/30/2020 Tdap (Boostrix) 03/06/2019 Family History Medical History Relation Comments Stroke Father Relation Status Comments Father Social History Tobacco Use Types Packs/Day Years Used Date Smoking Tobacco: Every Day Cigarettes 1 40 Passive Smoke Exposure: Never Smokeless Tobacco: Never Tobacco Cessation:Ready to Q uit: Yes; Counseling Given: Yes Comments:provider to high school guidance counselor Alcohol Use Standard Drinks/Week Comments Not Currently 0 (1 standard drink = 0.6 oz pur e alcohol) 2 times a week AUDIT-C Answer Date Recorded Q1: How often do you have a drink containing alcohol? Never 09/27/2024 Q2: How many drinks containi ng alcohol do you have on a typical day when you are drinking? Patient does not drink Q3: How often do you have si x or more drinks on one occasion? Never 09/27/2024 PHQ-2 Answer Date Recorded Patient Health Questionnaire-2 Score 0 08/10/2024 Comments No Sex and Gender Information Value Date Recorded Sex Assigned at Female 08/10/2024 1:09 PM EVP GLOBAL PRODUCT LEADERSHIP Legal Sex Female 9:10 AM CDT Gender Identity Female 08/10/2024 1:09 PM EVP GLOBAL PRODUCT LEADERSHIP Sexual Orientation Not on file Occupation Industry Job Start Date Job End Date Not on file Not on file Not on file Not on file Last Filed Vital Signs Vital Sign Reading Time Taken Comments Blood Pressure 116/74 01/03/2025 8:15 AM CDT Pulse 96 01/03/2025 8:15 AM CDT Temperature 36.5 C (97.7 F) 01/03/2025 8:15 AM CDT Respiratory Rate 18 09/27/2024 8:22 AM CDT Oxygen Saturation 96% 01/03/2025 8:15 AM CDT Inhaled Oxygen Concentration - - Weight 81.4 kg (179 lb 8 oz) 01/03/2025 8:15 AM CDT Height 167.6 cm (5' 6) 01/03/2025 8:15 AM CDT Body Mass Index 28.97 01/03/2025 8:15 AM CDT Plan of Treatment Health Maintenance Due Date Last Done Comments Hepatitis A Vaccines (1 of 2 - Risk 2-dose series) 1973 RSV Immunization or 60+ Years (1 - Risk 60-74 years 1-dose series) 2014 Zoster Vaccines (2 of 2) 08/25/2020 06/30/2020 Lung Cancer Screening 09/18/2023 09/17/2022 Mammogram Screening 01/16/2025 01/17/2024, 02/22/2022, 02/22/2022, Additional history exists COVID-19 Vaccine ( season) 2025 02/25/2024, 04/09/2023, 12/08/2021, Additional history exists Influenza Adult (#1) 2025 02/25/2024, 04/09/2023, 05/22/2020 Annual Medicare Wellness Visit 09/28/2025 09/27/2024 Colorectal Cancer Screening Colonoscopy (10 Years) 04/22/2026 04/22/2016 DTaP, Tdap and Td Vaccines (2 - Td or Tdap) 03/06/2029 03/06/2019 Hepatitis C Completed 03/23/2019 Pneumococcal Vaccine: 50+ Years Completed 05/22/2020, 03/06/2019 Dexa Scan (General) Completed 07/09/2020 PHQ-2 (Physician Kake) Completed 08/10/2024 Meningococcal B Vaccine Aged Out No l onger eligible based on patient's age to complete this topic Meningococcal Vaccine Aged Out No jabari crystal eligible based on patient's age to complete this topic RSV Immunizations Under 20 Months Aged Out No longer eligible based on patient's age to complete this topic Procedures Procedure Name Priority Date/Time Associated Diagnosis Comments MAMMOGRAM GENERIC (SCAN ORDER) 01/17/2024 CT LUNG SCREENING Routine 09/17/2022 12: 00 AM CDT Nicotine dependence, cigarettes, uncomplicated BONE DENSITY GENERIC (SCAN ORDER) 07/09/2020 HEPATITIS C ANTIBODY Routine 03/23/2019 7:05 AM CDT Annual physical exam Need for hepatitis C screening test COLONOSCOPY GENERIC (SCAN ORDER) Routine 04/22/2016 from Last 3 Months or Most Recently Relevant to Health Maintenance Results * MAMMOGRAM GENERIC (SCAN ORDER) (01/17/2024) Anatomical Region Laterality Modality Other 01/17/2024 us Doc [facility] Scanned SCANNING Final Resu lt * CT LUNG SCREENING (09/17/2022 12:00 AM CDT) Anatomical Region Laterality Modality Chest Computed Tomogra phy 09/17/2022 us Kelvin P Luchtefeld DO CT Final Re sult * BONE DENSITY GENERIC (07/09/2020) Anatomical Region Laterality Modality Other 07/09/2020 Narrative 07/09/2020 Ordered by an unspecified provider. us Documents Scanned SCANNING Edited Result - Final * (ABNORMAL) HEPATITIS C ANTIBODY (03/23/2019 7:05 AM CDT) HEPATITIS C AB REACTIVE(A ) NON-REACTI VE 03/23/2019 10:37 PM CDT [facility] Comment: NOTE: A POSITIVE RESULT WILL BE CONFIRMED BY THE HEP C RNA, QUANT, PCR TEST. 03/23/2019 7:05 AM CDT us Kelvin Bansal DO LABORATORY Final Re sult Performing Organization Address City/[facility]/ZIP Co de Phone Number [facility] [address] [place] [address], [place] [phone] * COLONOSCOPY (04/22/2016) us Documents Scanned SCANNING Final Result Performing Organization Address City/[facility]/ZIP Co de Phone Number [facility] from Last 3 Months or Most Recently Relevant to Health Maintenance Insurance [employer] Care Teams Furnace Packer Relationship Specialty Start Date End Date Kelvin Bansal DO [address] [place] [address] [phone] PCP - General FAMILY PRACTICE 03/06/19
--- OUTSIDE RECORDS SUMMARY | 2025-04-04 02:07 | XMS_ITS | Encounter Summary ---
Author Organization [facility] Address [address] [place] [address] Care Team Providers Care Proposal Coordinator Name Role Phone Zeeshan Fan DO Primary Care Provider [phone] Encounter Details Date Type Department Care Team (Late st Contact Info) Description 07/17/2003 Outpatient Historical [facility] Family Medicine [facility] [address] [place] [address] Zeeshan Fan DO [address] [address] Social History Tobacco Use Types Packs/Day Years Used Date Smoking Tobacco: Never Assessed Comments Unknown Sex and Gender Information Value Date Recorded Sex Assigned at Not on file Legal Sex Female 4:35 AM BILINGUAL HR GENERALIST Gender Identity Not on file Sexual Orientation Not on file documented as of this encounter Plan of Treatment Not on file documented as of this encounter Visit Diagnoses Not on filedocumented in this encounter Care Teams Proposal Coordinator Relationship Specialty Start Date End Date Zeeshan Fan DO PCP - General 09/06/07 documented as of this encounter
--- OUTSIDE RECORDS SUMMARY | 2025-04-04 02:07 | XMS_ITS | Clinical Summary ---
Author Organization [facility] Address [address] [place] [address] Care Team Providers Care Fire Control Technician G Name Role Phone Kelvin Bansal Primary Care Provider + Source Comments [facility],non-owned Affiliates and Associated Physician Practices is amultiple site organization consisting of ambulatory clinics and hospital sitesin [place], [place] and [place]. This disclosure is being madepursuant to the Care Everywhere program and may not contain all information available regarding this patient. Last updated 18.[facility] Allergies No known active allergies Medications * Be aware that medications may not be up to date on this document. Alwaysverify current medications with the patient. atorvastatin (Lipitor) 40 MG tablet Take 1 (one) tablet by mouth once daily 01/02/2024 Active Active Problems Problem Noted Date Diagnosed Date Prolapse of anterior vaginal wall 06/18/2024 Emphysema lung 09/20/2022 Overview (03/14/2024): Noted on CT from 09/17/22 Hepatitis C antibody test positive 04/02/2019 Vitamin D deficiency 04/02/2019 Resolved Problems Problem Noted Date Diagnosed Date Resolved Date Gastroesophageal reflux disease 03/06/2019 08/03/2024 Pain of right heel 07/21/2016 5 Encounters Date Type Department Care Team Description 01/31/2025 10:10 AM CDT Office Visit [facility] DRIVER [address] [place] [address] Varun Miranda Che, MD Urge incontinence (Primary Dx); Nocturia; Irritable bowel syndrome with diarrhea 01/31/2025 Travel from Last 3 Months Family History Medical History Relation Name Comments CVA Father Relation Name Status Comments Father Social History Tobacco Use Types Packs/Day Years Used Date Smoking Tobacco: Every Day Cigarettes 1 40 Smokeless Tobacco: Never Tobacco Cessation:Ready to Q uit: Not Asked; Counseling Given: Not Answered Alcohol Use Standard Drinks/Week Comments Not Currently 0 (1 standard drink = 0.6 oz pur e alcohol) PHQ-2 Answer Date Recorded Patient Health Questionnaire-2 Score 0 01/31/2025 Comments No Sex and Gender Information Value Date Recorded Sex Assigned at Not on file Legal Sex Female 2:00 PM CDT Gender Identity Not on file Sexual Orientation Not on file Last Filed Vital Signs Vital Sign Reading Time Taken Comments Blood Pressure 126/72 01/31/2025 10:09 AM CDT Pulse 91 06/19/2024 8:21 AM FUEL SYSTEM MAINTENANCE WORKER Temperature 36.7 C (98.1 F) 06/19/2024 8:21 AM FUEL SYSTEM MAINTENANCE WORKER Respiratory Rate 20 06/19/2024 8:21 AM FUEL SYSTEM MAINTENANCE WORKER Oxygen Saturation 95% 06/19/2024 8:21 AM FUEL SYSTEM MAINTENANCE WORKER Inhaled Oxygen Concentration - - Weight 81.6 kg (180 lb) 01/31/2025 10:09 AM CDT Height 166.4 cm (5' 5.5) 01/31/2025 10:09 AM CD T Body Mass Index 29.5 01/31/2025 10:09 AM CDT Plan of Treatment Health Maintenance Due Date Last Done Comments BONE DENSITY TESTING 1954 COLOGUARD (AGES 45-75) - COLON CA SCREENING 1954 COLON MONITORING 1954 COLONOSCOPY - COLON CA SCREENING 1954 CT COLONOGRAPHY - COLON CA SCREENING 1954 Colorectal Cancer Screening 1954 FIT - COLON CA SCREENING 1954 FLEX SIG - COLON CA SCREENING 1954 MEDICARE AWV 12 MONTHS 1954 DTAP/TDAP/TD VACCINES (1 - Tdap) 1973 PNEUMOCOCCAL VACCINE 50+ (1 of 2 - PCV) 1973 LUNG CANCER SCREENING 02/28/2004 ZOSTER VACCINE (1 of 2) 02/28/2004 Respiratory Syncytial Virus (RSV) Vaccine Pt: or over 60 yrs (1 - Risk 60-74 years 1-dose series) 2014 COVID-19 VACCINE ( season) 2025 02/25/2024, 04/09/2023, 12/08/2021, Additional history exists INFLUENZA VACCINE (#1) 2025 4, 04/09/2023, 05/22/2020 MAMMOGRAM 01/16/2026 01/17/2024, 02/04, 02/22/2022, Additional history exists SCREENING FOR DIABETES 04/24/2027 04/24/2024 HEPATITIS C SCREENING Completed 03/23/2019 DEPRESSION SCREENING Completed 06/26/2024, 03/14/20 HEPATITIS B VACCINE Aged Out No longe r eligible based on patient's age to complete this topic HIB VACCINE Aged Out No longer eligi ble based on patient's age to complete this topic HPV VACCINE Aged Out No longer eligi ble based on patient's age to complete this topic MENINGOCOCCAL (Group B) VACCINE SHARED DECISION-MAKING Aged Out No longer eligible based on patient's age to complete this topic MENINGOCOCCAL GROUPS A/C/Y/W VACCINE Aged Out No longer eligible based on patient's age to complete this topic Procedures Procedure Name Priority Date/Time Associated Diagnosis Comments BASIC METABOLIC PANEL (CALCIUM TOTAL) Routine 04/24/2024 8:46 AM FUEL SYSTEM MAINTENANCE WORKER Midline cystocele Perineocele Pre-op testing from Last 3 Months or Most Recently Relevant to Health Maintenance Results * BASIC METABOLIC PANEL (CALCIUM TOTAL) (04/24/2024 8:46 AM FUEL SYSTEM MAINTENANCE WORKER) Glucose 86 65 - 99 mg/dL [facility] Comment: Fasting reference interval BUN 13 7 - 25 mg/dL [facility] Creatinine 0.75 0.60 - 1.00 mg/dL [facility] eGFR by Cystatin C 86 > OR = 60 mL/min/1. 73m2 [facility] BUN/Creatinine Ratio SEE NOTE: 6 - 22 (calc) [facility] Comment: Not Reported: BUN and Creatinine are within reference range. Sodium 136 135 - 146 mmol/L [facility] Potassium 4.5 3.5 - 5.3 mmol/L [facility] Chloride 101 98 - 110 mmol/L [facility] CO2 27 20 - 32 mmol/L [facility] Calcium 9.3 8.6 - 10.4 mg/dL [facility] Comment: Test Performed at: [facility] [address] KYLAH IYER MD Blood BLOOD SPECIMEN / Unknown 04/24/2024 8:46 AM FUEL SYSTEM MAINTENANCE WORKER 04/24/2024 8:46 AM FUEL SYSTEM MAINTENANCE WORKER us Fa Brit Miranda MD LAB - CHEMISTRY ORDERABLES Mirian l Result [address] [address] from Last 3 Months or Most Recently Relevant to Health Maintenance Insurance [facility] MEDICARE Care Teams Fire Control Technician G Relationship Specialty Start Date End Date Kelvin Bansal DO [address] [place], [place] [phone] PCP - General Family Medicine Geriatric Medicine 03/14/24
--- OUTSIDE RECORDS SUMMARY | 2025-04-04 02:07 | XMS_ITS | Encounter Summary ---
Author Organization [facility] Address [address] [place] [address] Care Team Providers Care Supply Chain Generalist Name Role Phone Kelvin Bansal Primary Care Provider + Encounter Details Date Type Department Care Team (Late st Contact Info) Description 05/07/2024 Telephone [facility] [address], [facility] [address] [place] [address] Varun Miranda Che, MD [address] [facility] [address] [place] [address] Social History Tobacco Use Types Packs/Day Years Used Date Smoking Tobacco: Every Day Cigarettes 1 40 Smokeless Tobacco: Never Alcohol Use Standard Drinks/Week Comments Not Currently 0 (1 standard drink = 0.6 oz pur e alcohol) PHQ-2 Answer Date Recorded Patient Health Questionnaire-2 Score 0 03/12/2024 Comments No Sex and Gender Information Value Date Recorded Sex Assigned at Not on file Legal Sex Female 2:00 PM CDT Gender Identity Not on file Sexual Orientation Not on file documented as of this encounter Miscellaneous Notes * Telephone Encounter - Eloisa Gifford - 05/07/2024 9:12 AM CST Pt calling to reschedule surgery appt. Surgery was canceled for today R PASSENGER CAR documented in this encounter Plan of Treatment Not on file documented as of this encounter Visit Diagnoses Not on filedocumented in this encounter Care Teams Supply Chain Generalist Relationship Specialty Start Date End Date Kelvin Bansal DO [address] [place] [id number] PCP - General Family Medicine Geriatric Medicine 03/14/24 documented as of this encounter
--- OUTSIDE RECORDS SUMMARY | 2025-04-04 02:07 | XMS_ITS | Encounter Summary ---
Author Organization [facility] Address Count includes the [facility] [place] [address] Care Team Providers Care Other Sports Coach Or Instructor Name Role Phone Kelvin Bansal DO Primary Care Provider + Encounter Details Date Type Department Care Team (Late st Contact Info) Description 12/03/2022 Therapy Plan [facility] Physical Therapy [address] [place], [place] [phone] Asuncion Nair, [place] [address] Social History Tobacco Use Types Packs/Day Years Used Date Smoking Tobacco: Every Day Cigarettes 1 40 Smokeless Tobacco: Never Comments:provider to consumer credit counselor Alcohol Use Standard Drinks/Week Comments Yes 0 (1 standard drink = 0.6 oz pur e alcohol) 2 times a week AUDIT-C Answer Date Recorded Frequency of Alcohol Consumption Not on file 03/06/2019 Average Number of Drinks 5 or 6 019 Frequency of Binge Drinking Not on file 06/2018 PHQ-2 Answer Date Recorded Patient Health Questionnaire-2 Score 0 12/06/2022 Comments No Sex and Gender Information Value Date Recorded Sex Assigned at Female 08/10/2024 1:09 PM KNITTING MACHINE OPERATOR Legal Sex Female 9:10 AM CDT Gender Identity Female 08/10/2024 1:09 PM KNITTING MACHINE OPERATOR Sexual Orientation Not on file Occupation Industry Job Start Date Job End Date Not on file Not on file Not on file Not on file documented as of this encounter Functional Status * Over the past 2 weeks, how often have you been bothered by any of the following problems? Question Answer Date of Assessment Author Status Little interest or pleasure in doing things Not at all 12/06/2022 7:20 AM CDT Layne Orourke MA Acti ve Feeling down, depressed, or hopeless Not at all 12/06/2022 7:20 AM CDT Layne Orourke MA Active Patient Health Questionnaire-2 Score 0 12/06/2022 7:20 AM CDT Layne Orourke M A Active documented as of this encounter Plan of Treatment Not on file documented as of this encounter Visit Diagnoses Not on filedocumented in this encounter Additional Health Concerns Assessment Noted Time PHQ-9 Depression Total Score: 6 09/05/19 21 9:51 AM CDT documented as of this encounter Care Teams Other Sports Coach Or Instructor Relationship Specialty Start Date End Date Kelvin Bansal DO [address] [place] [id number] PCP - General FAMILY PRACTICE 03/06/19 documented as of this encounter
--- OUTSIDE RECORDS SUMMARY | 2025-04-04 02:07 | XMS_ITS | Encounter Summary ---
Author Organization [facility] Address [address] [place] [address] Care Team Providers Care Internal Audit Director Name Role Phone Zeeshan Fan DO Primary Care Provider Encounter Details Date Type Department Care Team (Late st Contact Info) Description 12/03/2002 Outpatient Historical [facility] Family Medicine [facility] [address] [place] [address] Zeeshan Fan DO [address] [address] Social History Tobacco Use Types Packs/Day Years Used Date Smoking Tobacco: Never Assessed Comments Unknown Sex and Gender Information Value Date Recorded Sex Assigned at Not on file Legal Sex Female 4:35 AM THERAPEUTIC SPECIALIST Gender Identity Not on file Sexual Orientation Not on file documented as of this encounter Plan of Treatment Not on file documented as of this encounter Visit Diagnoses Not on filedocumented in this encounter Care Teams Internal Audit Director Relationship Specialty Start Date End Date Zeeshan Fan DO PCP - General 09/06/07 documented as of this encounter
--- OUTSIDE RECORDS SUMMARY | 2025-04-04 02:07 | XMS_ITS | Encounter Summary ---
Author Organization [facility] Address [address] [place] [address] Care Team Providers Care Physician Office Rep Name Role Phone Zeeshan Fan DO Primary Care Provider [phone] Encounter Details Date Type Department Care Team (Late st Contact Info) Description 10/18/2005 Outpatient Historical [facility] [place] Medicine [facility] [address] [place] [address] Zeeshan Fan DO [address] [address] Social History Tobacco Use Types Packs/Day Years Used Date Smoking Tobacco: Never Assessed Comments Unknown Sex and Gender Information Value Date Recorded Sex Assigned at Not on file Legal Sex Female 4:35 AM DIRECTOR OF EVENT SALES Gender Identity Not on file Sexual Orientation Not on file documented as of this encounter Plan of Treatment Not on file documented as of this encounter Visit Diagnoses Not on filedocumented in this encounter Care Teams Physician Office Rep Relationship Specialty Start Date End Date Zeeshan Fan DO PCP - General 09/06/07 documented as of this encounter
--- OUTSIDE RECORDS SUMMARY | 2025-04-04 02:07 | XMS_ITS | Clinical Summary ---
Author Organization [facility] Address [address] [place] [address] Care Team Providers Care Laborer Aquatic Life Name Role Phone MitaZeeshan DO Primary Care Provider [phone] Allergies No known active allergies Active Problems Problem Noted Date Diagnosed Date Pure hypercholesterolemia Other malaise and fatigue Social History Tobacco Use Types Packs/Day Years Used Date Smoking Tobacco: Never Assessed Comments No Sex and Gender Information Value Date Recorded Sex Assigned at Not on file Legal Sex Female 4:35 AM CLIENT LIAISON Gender Identity Not on file Sexual Orientation Not on file Last Filed Vital Signs Vital Sign Reading Time Taken Comments Blood Pressure 126/80 09/06/2007 4:03 PM CDT Pulse 70 09/06/2007 4:03 PM CDT Temperature - - Respiratory Rate - - Oxygen Saturation - - Inhaled Oxygen Concentration - - Weight 79.8 kg (176 lb) 09/06/2007 4:03 PM CDT Height 166.4 cm (5' 5.5) 09/06/2007 4:03 PM CDT Body Mass Index 28.84 09/06/2007 4:03 PM CDT Plan of Treatment Health Maintenance Due Date Last Done Comments DTAP/TDAP/TD VACCINES (1 - Tdap) 1973 BREAST CANCER SCREENING 1994 COLORECTAL SCREENING 1999 Colorectal Cancer Screening 1999 FIT-DNA Q 3 years 1999 FIT/FOBT Q 1 year 1999 Flex Sig/CT Colonography Q 5 years 1999 PNEUMOCOCCAL VACCINE 50+ YEARS (1 of 1 - PCV) 02/28/20 04 ZOSTER VACCINE (1 of 2) 02/28/2004 OSTEOPOROSIS SCREENING 2019 INFLUENZA VACCINE (#1) 2025 RSV VACCINE (60+ or ) (1 - 1-dose 75+ series) 2029 Care Teams Laborer Aquatic Life Relationship Specialty Start Date End Date Zeeshan Fan DO PCP - General 09/06/07
--- OUTSIDE RECORDS SUMMARY | 2025-04-04 02:07 | XMS_ITS | Encounter Summary ---
Author Organization [facility] Address [address] [address] Care Team Providers Care Engagement Executive Name Role Phone Kelvin Bansal Primary Care Provider + Reason for Visit * Reason Onset Date Comments Treatment 07/19/2024 PLS CALL PT TO D ISCUSS 2.18.25 POS APPT., PT SEEKING TO [facility]. HOWEVER, THERE AREN'T ANY POS SLOTS AVAIL IN SYSTEM Encounter Details Date Type Department Care Team (Late st Contact Info) Description 07/19/2024 Telephone [facility] [address] [address] Varun Miranda Che, MD [address] [address] Treatment (PLS CALL PT TO DISCUSS 2.18.25 POS APPT., PT SEEKING TO [facility]. HOWEVER, THERE AREN'T ANY POS SLOTS AVAIL IN SYSTEM) Social History Tobacco Use Types Packs/Day Years Used Date Smoking Tobacco: Every Day Cigarettes 1 40 Smokeless Tobacco: Never Alcohol Use Standard Drinks/Week Comments Not Currently 0 (1 standard drink = 0.6 oz pur e alcohol) PHQ-2 Answer Date Recorded Patient Health Questionnaire-2 Score 0 07/17/2024 Comments No Sex and Gender Information Value Date Recorded Sex Assigned at Not on file Legal Sex Female 2:00 PM CDT Gender Identity Not on file Sexual Orientation Not on file documented as of this encounter Miscellaneous Notes * Telephone Encounter - Doug Martinez, RN - 07/19/2024 10:34 AM CST LM on both Cris's personal VMs re: Returning call. Sorry I missed you. Please call back office andask for one of Dr Miranda's nurses. I'm sure we can easily get you rescheduled. NICS MECHANIC * Telephone Encounter - Doug Brand - 07/19/2024 9:39 AM CST PLS CALL PT TO DISCUSS 2.18.25 POS APPT., PT SEEKING TO [facility]. HOWEVER, THERE AREN'T ANY POS SLOTS AVAIL IN SYSTEM NICS MECHANIC documented in this encounter Plan of Treatment Not on file documented as of this encounter Visit Diagnoses Not on filedocumented in this encounter Care Teams Engagement Executive Relationship Specialty Start Date End Date Kelvin Bansal DO [address] [place] [id number] PCP - General Family Medicine Geriatric Medicine 03/14/24 documented as of this encounter
--- OUTSIDE RECORDS SUMMARY | 2025-04-04 02:07 | XMS_ITS | Clinical Summary ---
Author Organization [facility] Address [address] [facility] [place] [address] Phone Care Team Providers Care Wastewater Treatment Operator Name Role Phone Paul Devries MD Primary Care Provider [phone] Urbano Horan DPM Unavailable [phone] Allergies No known active allergies Medications atorvastatin (LIPITOR) 40 MG Tablet Take 1 Tab by mouth daily. 06/11/2016 Active pantoprazole (PROTONIX) 40 MG Tablet Delayed Response Take 1 Tab by mouth daily. 06/14/2016 Active Active Problems Problem Noted Date Diagnosed Date Other enthesopathy of right foot 08/22/2016 Heel spur 07/21/2016 Pain of right heel 07/21/2016 Immunizations Immunization Administration Dates Next Due Covid-19, Mrna, Lnp-s, Pf, 30 Mcg/0.3 Ml Dose (P fizer) 09/09/2020,08/19/2020 Social History Tobacco Use Types Packs/Day Years Used Date Smoking Tobacco: Every Day Cigarettes 0.5 40 Smokeless Tobacco: Never Tobacco Cessation:Counseling Given: Yes Alcohol Use Standard Drinks/Week Comments Yes 0 (1 standard drink = 0.6 oz pur e alcohol) weekly Comments No Sex and Gender Information Value Date Recorded Sex Assigned at Not on file Legal Sex Female 3:29 PM BAKER CHEF Gender Identity Not on file Sexual Orientation Not on file Last Filed Vital Signs Vital Sign Reading Time Taken Comments Blood Pressure 116/84 07/21/2016 2:54 PM BAKER CHEF Pulse 104 07/21/2016 2:54 PM BAKER CHEF Temperature 36.2 C (97.2 F) 07/21/2016 2:54 PM BAKER CHEF Respiratory Rate 19 07/21/2016 2:54 PM BAKER CHEF Oxygen Saturation 94% 07/21/2016 2:54 PM BAKER CHEF Inhaled Oxygen Concentration - - Weight 85.3 kg (188 lb) 07/21/2016 2:54 PM BAKER CHEF Height 166.4 cm (5' 5.5) 07/21/2016 2:54 PM BAKER CHEF Body Mass Index 30.81 07/21/2016 2:54 PM BAKER CHEF Plan of Treatment Health Maintenance Due Date Last Done Comments Hepatitis C Virus (HCV) Screening 1955 Cologuard 1999 Colonoscopy 1999 Colorectal Cancer Screening 1999 Immunochemical Fecal Occult Blood 1999 Zoster Immunization (1 of 2) 02/28/2004 Influenza Immunization (#1) 2025 05/22/2020 SARS-COV-2 Immunization ( season) 2025 05/04/2021, 09/09/2020, 08/19/2020 Respiratory Syncytial Virus (RSV) Immunization (Adult) (1 - 1-dose 75+ series) 2029 DTaP/Tdap/Td Immunization Discontinued 03/06/2019 TdaP Immunization Completed 03/06/2019 Pneumococcal Immunization (5 0+ years) Completed 05/22/2020, 03/06/2019 Pneumococcal Immunization Combined Discontinued 05/22/2020, 03/06/2019 Hepatitis B Immunization Aged Out No longer eligible based on patient's age to complete this topic Human Papillomavirus (HPV) Immunization Aged Out No longer eligible based on patient's age to complete this topic Meningococcal Immunization (ACWY) Aged Out No longer eligible based on patient's age to complete this topic Rotavirus Immunization Aged Out No lo nger eligible based on patient's age to complete this topic Insurance MEDICAID [place] Care Teams Wastewater Treatment Operator Relationship Specialty Start Date End Date Paul Devries MD PCP - General Family Medicine 07/09/16 Urbano Horan DPM Podiatry 07/21/16
--- OUTSIDE RECORDS SUMMARY | 2025-04-04 02:07 | XMS_ITS | Encounter Summary ---
Author Organization [facility] Address [address] [place] [address] Care Team Providers Care Nipping Machine Operator Name Role Phone Zeeshan Fan DO Primary Care Provider [phone] Encounter Details Date Type Department Care Team (Late st Contact Info) Description 02/22/2003 Outpatient Historical [facility] Family Medicine [facility] [address] [place] [address] Zeeshan Fan DO [address] [address] Social History Tobacco Use Types Packs/Day Years Used Date Smoking Tobacco: Never Assessed Comments Unknown Sex and Gender Information Value Date Recorded Sex Assigned at Not on file Legal 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
--- OUTSIDE RECORDS SUMMARY | 2025-04-04 02:07 | XMS_ITS | Encounter Summary ---
Author Organization [facility] Address [address] [place] [address] Care Team Providers Care Application Architect Manager Name Role Phone Zeeshan Fan DO Primary Care Provider [phone] Encounter Details Date Type Department Care Team (Late st Contact Info) Description 04/01/2003 Outpatient Historical [facility] Medicine [facility] [address] [place] [address] Zeeshan Fan DO [address] [address] Social History Tobacco Use Types Packs/Day Years Used Date Smoking Tobacco: Never Assessed Comments Unknown Sex and Gender Information Value Date Recorded Sex Assigned at Not on file Legal Sex Female 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
--- OUTSIDE RECORDS SUMMARY | 2025-04-04 02:07 | XMS_ITS | Encounter Summary ---
Author Organization [facility] Address 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
--- OUTSIDE RECORDS SUMMARY | 2025-04-04 02:08 | XMS_ITS | Encounter Summary ---
Author Organization [facility] Address [address] [place] [address] Care Team Providers Care Admissions Counselor Name Role Phone Zeeshan Fan DO Primary Care Provider [phone] Encounter Details Date Type Department Care Team (Late st Contact Info) Description 10/24/2000 Outpatient Historical [facility] Family Medicine [facility] [address] [place] [address] Zeeshan Fan DO [address] [address] Social History Tobacco Use Types Packs/Day Years Used Date Smoking Tobacco: Never Assessed Comments Unknown Sex and Gender Information Value Date Recorded Sex Assigned at Not on file Legal Sex 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
--- OUTSIDE RECORDS SUMMARY | 2025-04-04 02:08 | XMS_ITS | Encounter Summary ---
Author Organization [facility] Address [address] [place] [address] Care Team Providers Care Medical Pathology Teacher Name Role Phone Zeeshan Fan DO Primary Care Provider [phone] Encounter Details Date Type Department Care Team (Late st Contact Info) Description 08/29/2002 Outpatient Historical [facility] Family Medicine [facility] [address] [place] [address] Zeeshan Fan DO [address] [address] Social History Tobacco Use Types Packs/Day Years Used Date Smoking Tobacco: Never Assessed Comments Unknown Sex and Gender Information Value Date Recorded Sex Assigned at Not on file Legal Sex Female 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
--- OUTSIDE RECORDS SUMMARY | 2025-04-04 02:08 | XMS_ITS | Encounter Summary ---
Author Organization [facility] Address [address] [place] [address] Care Team Providers Care French Polisher Name Role Phone Zeeshan Fan DO Primary Care Provider Encounter Details Date Type Department Care Team (Late st Contact Info) Description 03/02/2002 Outpatient Historical [facility] Family Medicine [facility] [address] [place] [address] Zeeshan Fan DO [address] [address] Social History Tobacco Use Types Packs/Day Years Used Date Smoking Tobacco: Never Assessed Comments Unknown Sex and Gender Information Value Date Recorded Sex Assigned at Not on file Legal Sex Female 4:35 AM LEAD DIE MOLDER Gender Identity Not on file Sexual Orientation Not on file documented as of this encounter Plan of Treatment Not on file documented as of this encounter Visit Diagnoses Not on filedocumented in this encounter Care Teams French Polisher Relationship Specialty Start Date End Date Zeeshan Fan DO PCP - General 09/06/07 documented as of this encounter
--- OUTSIDE RECORDS SUMMARY | 2025-04-04 02:08 | XMS_ITS | Encounter Summary ---
Author Organization [facility] Address [address] [place] [address] Care Team Providers Care Handbag Designer Name Role Phone Zeeshan Fan DO Primary Care Provider [phone] Encounter Details Date Type Department Care Team (Late st Contact Info) Description 06/29/2002 Outpatient Historical [facility] Family Medicine [facility] [address] [place] [address] Zeeshan Fan DO [address] [address] Social History Tobacco Use Types Packs/Day Years Used Date Smoking Tobacco: Never Assessed Comments Unknown Sex and Gender Information Value Date Recorded Sex Assigned at Not on file Legal Sex Female 4:35 AM BURRITO MAKER Gender Identity Not on file Sexual Orientation Not on file documented as of this encounter Plan of Treatment Not on file documented as of this encounter Visit Diagnoses Not on filedocumented in this encounter Care Teams Handbag Designer Relationship Specialty Start Date End Date Zeeshan Fan DO PCP - General 09/06/07 documented as of this encounter
[2025-04-04 10:10] VITALS: BP 116/75; PULSE 104; RESP 19; TEMP 36.2; O2SAT 98
[2025-04-04] MEDS: LACTATED RINGERS 1,000 ML 150 ML IV CONT (10:19)
--- NOTE | 2025-04-04 10:31 | P.PNAN_ITS ---
Anes - Initial Pre Proc Eval Procedure: Operation Date: 04/04/25 14:00 Proposed Procedures p Diagnostic Colonoscopy - Mukesh Beltran MD Date/Time: 04/04/25 10:31 Surgeon: Mukesh Beltran MD Pre Op Diagnosis: Full incontinence of feces Patient Data Age: 70 Gender: F Height: 1.66 m Weight: 79.9 kg Last Vital Signs Temp 97.2 F L 04/04/25 10:10 Pulse 104 H 04/04/25 10:10 Resp 19 04/04/25 10:10 BP 116/75 04/04/25 10:10 Pulse Ox 98 04/04/25 10:10 O2 Del Method Room Air 04/04/25 10:10 Allergies Allergy/AdvReac Type Severity Reaction Status Date / Time No Known Allergies Allergy Verified 04/04/25 10:09 Home Medications ?Medication ?Instructions ?Recorded ?Confirmed ?Type atorvastatin 40 mg tablet 40 mg PO HS 08/07/20 5 History Patient hx anesthesia problems: none Family hx anesthesia problems: none Results Review: All pre-operative results and documents have been reviewed as part of the pre- operative evaluation. [facility] Past Medical History Medical History Overweight (BMI 25.0-29.9) Tobacco use Encounter for screening colonoscopy Fecal incontinence Fx coronoid proc ulna-closed Fracture of proximal end of right ulna Hyperlipidemia Surgical History Surgical History History of midurethral sling procedure Social History Social History Smoking packs per day: 0.5 Smoking cigarettes per day: 10.0 Years smoked: 40 Smoking pack-years: 20.00 Smoking status: Current every day smoker Tobacco type: cigarettes Alcohol intake: current Drinks per week: 10 Alcohol use details: 2-3 beers/day on average Substance use: never Substance use type: does not use Living arrangements: alone Gender identity (if verbalized by the patient): Female Spiritual care concerns: No Anes - Eval Final PreProcedure Day of Procedure 04/04/25 10:31 Patient weight: normal Lungs: normal air movement Airway: Mallampati scale class II Neurological: alert and oriented Last oral intake: >/= 8 hours ASA classification: II Emergent: no Anesthetic plan: proceed Anesthesia type and monitoring: general GIVS and standard monitoring Results Review: All pre-operative results and documents have been reviewed as part of the pre- operative evaluation. Informed Consent: The patient's anesthetic plan and its attendant risks and benefits were discussed with the patient/family/POA. Questions were solicited and answers provided to the satisfaction of the patient/family/POA.
--- NOTE | 2025-04-04 10:53 | PM.HPGS ---
History of Present Illness History of Present Illness Consent: Risks, benefits, and alternatives have been discussed and questions answered. Patient agrees to proceed with procedure. Chief complaint: Full incontinence of feces Narrative: Cris Loyola is a 70 year old female with last colonoscopy 2016, last few years with bowel urgency Review of Systems Review of Systems: All systems reviewed & are unremarkable except as noted in HPI and below PMFSH Past Medical History Medical History Overweight (BMI 25.0-29.9) Tobacco use Encounter for screening colonoscopy Fecal incontinence Fx coronoid proc ulna-closed Fracture of proximal end of right ulna Hyperlipidemia Surgical History Surgical History History of midurethral sling procedure Social History Social History Smoking packs per day: 0.5 Smoking cigarettes per day: 10.0 Years smoked: 40 Smoking pack-years: 20.00 Smoking status: Current every day smoker Tobacco type: cigarettes Alcohol intake: current Drinks per week: 10 Alcohol use details: 2-3 beers/day on average Substance use: never Substance use type: does not use Living arrangements: alone Gender identity (if verbalized by the patient): Female Spiritual care concerns: No Meds Home Medications and Allergies Home Medications ?Medication ?Instructions ?Recorded ?Confirmed ?Type atorvastatin 40 mg tablet 40 mg PO HS 08/07/20 04/04/25 History Allergies Allergy/AdvReac Type Severity Reaction Status Date / Time No Known Allergies Allergy Verified 04/04/25 10:09 Vital Signs Vital Signs - 24 hr 04/04/25 10:10 Temperature 97.2 F L Pulse Rate 104 H Respiratory Rate 19 Blood Pressure 116/75 Pulse Oximetry 98 Oxygen Delivery Room Air Exam Const: General: comfortable and no acute distress HENMT: Face/Nose/Sinus: Normal nares present Eyes: General: appearance normal, both eyes and all related structures Neck: Neck: no JVD Resp: Auscultation: clear to auscultation bilaterally Cardio: Rate: regular rate Rhythm: regular rhythm GI: Inspection: non-distended GI Palp: Yes Soft to palpation Skin: General skin exam: normal color Extrem: General: normal to inspection Psych: Mental Status: mental status grossly normal Assessment and Plan Assessment and plan (1) Fecal incontinence: Code(s): R15.9 - Full incontinence of feces Status: Acute Assessment and Plan: colonoscopy
--- NOTE | 2025-04-04 11:00 | S_PTH ---
PATIENT: Cris Loyola LOC: [facility] Cook#:[id number] AGE/SX: 70/F ROOM: RE04/04/[address]: Mukesh Beltran MD : 1955 BED: DIS: 04/04/2025 SPEC #: [id number] RECD: 04/04/25 11:30 STATUS: EDU PINEDA #: [id number] SHERRI: 04/04/25 11:[address]: Mukesh Beltran DEPT: [facility] Surgical RECD BY: Kenia Bauer ENTERED: 04/04/25 11:31 SP TYPE: Surgical OTHR DR: Kelvin Bansal, DO Tissues: A - Colon Biopsy B - Colon Polypectomy Procedures: Hematoxylin and Eosin Stain Gross and Microscopic Level 4
[2025-04-04 11:05] VITALS: BP 136/110; PULSE 87; RESP 20; O2SAT 99
[2025-04-04 11:15] VITALS: BP 86/49; PULSE 79; RESP 20; O2SAT 96
[2025-04-04 11:25] VITALS: BP 103/66; PULSE 75; RESP 20; O2SAT 98
== END 2025-04-04 11:33 | disposition home or self-care (01) ==
PROVIDERS: PCP Student in an Organized Health Care Education/Training Program; Referring Provider Nurse Practitioner Family; Visit Provider Internal Medicine Gastroenterology
PROC: 0DJD8ZZ Inspection of Lower Intestinal Tract, Via Natural or Artificial Opening Endoscopic (ICD-10-PCS; CPT 45378; principal; 2025-04-04 14:00)
DX: R15.9 Full incontinence of feces (principal); D12.3 Benign neoplasm of transverse colon; K64.8 Other hemorrhoids; F17.210 Nicotine dependence, cigarettes, uncomplicated
CPT/HCPCS: 45385; 45380; 88305; J2704; J7120

== ENCOUNTER 2025-05-17 10:15 | Outpatient (CLI) | payer OTHER, SELFPAY ==
--- NOTE | ~2025-05-17 | CT_ITS ---
EXAMINATION:CT lung screening DATE: 05/17/2025 10:38 INDICATION: Screening TECHNIQUE: Computed tomography (CT) of the chest was performed without intravenous contrast. The dose-length product (DLP) was 101.81 mGy-cm. COMPARISON: March 06, 2024 FINDINGS: Stable 3 mm subpleural right lower lobe nodule. No new nodules or masses. No acute intrathoracic process. Heart and great vessels stable with atherosclerotic and coronary artery calcifications noted. Degenerative changes throughout the thoracic spine. No acute process seen in the visualized portions of the upper abdomen, extrathoracic soft tissues or bony thorax. IMPRESSION: 1. Stable right lower lobe nodule. Lung RADS 2. Recommend correlation with follow-up low-dose lung cancer screening chest CT in 12 months. 2. Other chronic findings as above. Reviewed, dictated and finalized at location A. INIST HELPER MARINE IMPRESSION: 1. Stable right lower lobe nodule. Lung RADS 2. Recommend correlation with foll ow-up low-dose lung cancer screening chest CT in 12 months. 2. Other chronic findings as above.
== END 2025-05-17 10:16 | disposition home or self-care (01) ==
PROVIDERS: PCP Student in an Organized Health Care Education/Training Program; Visit Provider Student in an Organized Health Care Education/Training Program
DX: Z12.2 Encounter for screening for malignant neoplasm of respiratory organs (principal); F17.210 Nicotine dependence, cigarettes, uncomplicated; R91.1 Solitary pulmonary nodule
CPT/HCPCS: 71271